=== PATIENT | male | born 1945 | race Asian ===

== ENCOUNTER → 2024-07-07 | Outpatient (CLI) | payer OTHER, SELFPAY ==
[2024-07-07 08:35] LABS: Basophils # (Auto) 0.1 Thou/mm3 (0.0-0.2); Basophils % (Auto) 1 % (0-2.5); Eosinophils # (Auto) 0.3 Thou/mm3 (0.0-0.5); Eosinophils % (Auto) 5 % (0-10); Hematocrit 43.8 % (41.0-53.0); Hemoglobin 14.4 g/dL (13.5-16.0); Immature Granulocytes % (Auto) 0 % (0-0); Immature Granulocytes Auto 0.01 Thou/mm3 (0.00-0.00); Lymphocytes # (Auto) 1.8 Thou/mm3 (1.0-4.8); Lymphocytes % (Auto) 34 % (10-50); Mean Corpuscular HGB Conc 32.9 g/dl (31.0-37.0); Mean Corpuscular Hemoglobin 34.1 pg (25.0-35.0); Mean Corpuscular Volume 104 fL (80-100); Monocytes # (Auto) 0.5 Thou/mm3 (0.0-0.8); Monocytes % (Auto) 9 % (0-12); Neutrophils # (Auto) 2.7 Thou/mm3 (1.8-7.7); Neutrophils % (Auto) 51 % (37-80); Nucleated Red Blood Cell % 0 /100 WBC (0); Platelet Count 183 Thou/mm3 (140-440); RDW Standard Deviation 51.2 fL (35.1-43.9); Red Blood Count 4.22 Miln/mm3 (4.50-5.90); White Blood Count 5.3 Thou/mm3 (3.8-10.6)
[2024-07-07 09:58] LABS: Glucose Estimated Average 120 mg/dL (80-131); Hemoglobin A1C 5.8 % Hgb (4.8-6.0)
[2024-07-07 10:02] LABS: Alanine Aminotransferase 23 U/L (10-49); Albumin, Serum 4.4 gm/dL (3.4-4.8); Albumin/Globulin Ratio 1.6 (1.2-2.2); Alkaline Phosphatase 84 U/L (46-116); Anion Gap 8 (7-16); Aspartate Amino Transferase 25 U/L (0-34); BUN/Creatinine Ratio 14 Ratio (12-20); Bilirubin,Total 0.5 mg/dL (0.3-1.2); Blood Urea Nitrogen 14 mg/dL (9-23); Calcium 10.3 mg/dL (8.3-10.6); Calcium (Corrected) 10.3 mg/dL (8.5-10.1); Carbon Dioxide 29.6 mMol/L (20.0-31.0); Cardiac Risk Estimate 3.2 RATIO (4.0-6.7); Chloride 107 mMol/L (98-107); Cholesterol 149 mg/dL (132-200); Globulin 2.8 gm/dL (2.3-3.5); Glucose 101 mg/dL (74-106); HDL Cholesterol 46 mg/dL (40-60); LDL Cholesterol,Calculated 72 mg/dL (0-130); Osmolality,Calculated 289 (275-295); Potassium 5.2 mMol/L (3.4-5.1); Sodium 145 mMol/L (136-145); Total Protein 7.2 gm/dL (5.7-8.2); Triglycerides 153 mg/dL (30-150); eGFR > 60 See Note
== END | disposition home or self-care (01) ==
PROVIDERS: PCP Family Medicine; Referring Provider Family Medicine; Visit Provider Family Medicine
DX: R63.6 Underweight (principal)
CPT/HCPCS: 36415; 80053; 80061; 83036; 85025

== ENCOUNTER → 2024-10-05 | Outpatient (CLI) | payer OTHER, SELFPAY ==
[2024-10-05 08:36] LABS: Basophils # (Auto) 0.1 Thou/mm3 (0.0-0.2); Basophils % (Auto) 1 % (0-2.5); Eosinophils # (Auto) 0.2 Thou/mm3 (0.0-0.5); Eosinophils % (Auto) 4 % (0-10); Hematocrit 44.3 % (41.0-53.0); Immature Granulocytes % (Auto) 0 % (0-0); Lymphocytes # (Auto) 1.4 Thou/mm3 (1.0-4.8); Lymphocytes % (Auto) 30 % (10-50); Mean Corpuscular HGB Conc 33.9 g/dl (31.0-37.0); Mean Corpuscular Hemoglobin 34.1 pg (25.0-35.0); Mean Corpuscular Volume 101 fL (80-100); Monocytes # (Auto) 0.4 Thou/mm3 (0.0-0.8); Monocytes % (Auto) 8 % (0-12); Neutrophils # (Auto) 2.7 Thou/mm3 (1.8-7.7); Neutrophils % (Auto) 56 % (37-80); Nucleated Red Blood Cell % 0 /100 WBC (0); Platelet Count 189 Thou/mm3 (140-440); RDW Standard Deviation 51.3 fL (35.1-43.9); White Blood Count 4.8 Thou/mm3 (3.8-10.6)
[2024-10-05 08:37] LABS: T4 (Thyroxine) 8.6 mcg/dL (4.5-10.9)
[2024-10-05 08:38] LABS: Alanine Aminotransferase 25 U/L (10-49); Albumin, Serum 4.8 gm/dL (3.4-4.8); Albumin/Globulin Ratio 1.7 (1.2-2.2); Alkaline Phosphatase 90 U/L (46-116); Anion Gap 9 (7-16); BUN/Creatinine Ratio 8 Ratio (12-20); Bilirubin,Total 0.6 mg/dL (0.3-1.2); Blood Urea Nitrogen 8 mg/dL (9-23); Calcium 9.9 mg/dL (8.3-10.6); Calcium (Corrected) 9.9 mg/dL (8.5-10.1); Carbon Dioxide 31.8 mMol/L (20.0-31.0); Cardiac Risk Estimate 2.5 RATIO (4.0-6.7); Chloride 103 mMol/L (98-107); Cholesterol 134 mg/dL (132-200); Globulin 2.9 gm/dL (2.3-3.5); Glucose 112 mg/dL (74-106); HDL Cholesterol 54 mg/dL (40-60); LDL Cholesterol,Calculated 64 mg/dL (0-130); Osmolality,Calculated 286 (275-295); Potassium 5.1 mMol/L (3.4-5.1); Sodium 144 mMol/L (136-145); Thyroid Stimulating Hormone 1.28 uIU/mL (0.55-4.78); Total Protein 7.7 gm/dL (5.7-8.2); Triglycerides 81 mg/dL (30-150); eGFR > 60 See Note
[2024-10-05 08:41] LABS: Folate 23.21 ng/mL (>5.38); Vitamin B12 1162 pg/mL (211-911); Vitamin D 25 Hydroxy Total 27.9 ng/mL (7.3-40.2)
[2024-10-05 08:55] LABS: Urea Breath Test Negative (Negative)
[2024-10-05 08:56] LABS: Glucose Estimated Average 126 mg/dL (80-131)
[2024-10-12 07:06] LABS: Homocysteine* 7.3 umol/L (< OR = 15.2); Methylmalonic Acid, GC/MS/MS* 212 nmol/L (69-390); Vitamin B1 (Thiamine)* 7 nmol/L (8-30)
== END | disposition home or self-care (01) ==
LOC: COPL 06:47
PROVIDERS: PCP Family Medicine; Referring Provider Nurse Practitioner Family; Visit Provider Nurse Practitioner Family
DX: E56.9 Vitamin deficiency, unspecified (principal); K21.9 Gastro-esophageal reflux disease without esophagitis; K29.00 Acute gastritis without bleeding; R53.83 Other fatigue
CPT/HCPCS: 36415; 80053; 80061; 82306; 82607; 82746; 83013; 83014; 83036; 83090; 83921; 84425; 84436; 84443; 85025

== ENCOUNTER → 2024-10-19 | Outpatient (CLI) | payer OTHER, SELFPAY ==
[2024-10-19 14:48] LABS: PSA Medicare Annual Scrn 4.57 ng/mL (0-4.00)
== END | disposition home or self-care (01) ==
LOC: COPL 13:26
PROVIDERS: PCP Nurse Practitioner Family; Referring Provider Nurse Practitioner Family; Visit Provider Nurse Practitioner Family
DX: Z12.5 Encounter for screening for malignant neoplasm of prostate (principal)
CPT/HCPCS: 36415; 84153; G0103

== ENCOUNTER → 2024-10-20 | Outpatient (CLI) | payer OTHER, SELFPAY ==
[2024-10-23 06:45] LABS: Fecal Globin Result NOT DETECTED (NOT DETECTED)
== END | disposition home or self-care (01) ==
LOC: SLDO 10:46
PROVIDERS: PCP Nurse Practitioner Family; Referring Provider Nurse Practitioner Family; Visit Provider Nurse Practitioner Family
DX: Z12.11 Encounter for screening for malignant neoplasm of colon (principal)
CPT/HCPCS: 82274; G0328

== ENCOUNTER 2025-01-11 12:25 | Day surgery (SDC) | payer OTHER, SELFPAY ==
[2025-01-11] VITALS (11 sets, daily range): BP systolic 100–161; BP diastolic 55–82; PULSE 60–73; RESP 12–20; TEMP 36.6–36.7; O2SAT 93–100; BMI 17.2
[2025-01-11] MEDS: BENZOCAINE 20% (Hurricaine) SPRAY 1 DOSE TOP (13:44)
[2025-01-11] MEDS: SODIUM CHLORIDE 0.9% 500 ML 500 ML 20 ML IV (13:45)
[2025-01-11] MEDS: fentaNYL CIT INJ 50 mCg/ML AMP 2ML (ASD USE ONLY) IVP (13:47)
[2025-01-11] MEDS: MIDAZOLAM INJ 1 MG/ML VIAL 2 ML (ASD USE ONLY) 2 MG IVP (13:47)
--- NOTE | 2025-01-11 14:17 | SUR.PHASEII ---
1356 patient s/p EGD under IV sedation, not responsive to painful stimuli, vital signs stable, breathing unlabored, report received from Salud JOHNSON. 1405 patient responsive to loud voice/painful stimuli, vital signs stable, breathing unlabored
--- NOTE | 2025-01-11 15:15 | SUR.PHASEII ---
1506 patient is awake, alert, breathing unlabored, able to drink water with no nausea, vomiting or difficulty swallowing, meets discharge criteria, discharge instructions given to patient and , patient discharged home in wheelchair with all belongings.
== END 2025-01-11 15:06 | disposition home or self-care (01) ==
PROVIDERS: PCP Nurse Practitioner Family; Referring Provider Specialist; Visit Provider Specialist
PROC: (CPT 43239; principal; 2025-01-11 12:45)
DX: K29.50 Unspecified chronic gastritis without bleeding (principal); K20.90 Esophagitis, unspecified without bleeding
CPT/HCPCS: 43239; A4649; J1200; J2250; J3010; J7999; A9270

== ENCOUNTER → 2025-01-27 | Outpatient (CLI) | payer OTHER, SELFPAY ==
--- NOTE | 2025-01-27 07:48 | XR_ITS ---
Examination: Abdomen sonogram, Limited Date and time of exam: 2024, 0753 hours INDICATIONS: Epigastric pain and acid reflux 10 years, cholecystectomy 2 years ago Technique: Real-time paz scale transabdominal sonographic images of the upper abdomen obtained. Findings: Absent gallbladder Normal common bile duct 0.4 cm Pancreatic head 2.2 cm Liver 14.4 cm no liver lesions Normal hepatopedal portal venous flow Patent IVC IMPRESSION: Normal common bile duct Liver normal size no focal liver lesions
== END | disposition home or self-care (01) ==
LOC: CDIM 06:42
PROVIDERS: PCP Family Medicine; Referring Provider Specialist; Visit Provider Specialist
DX: R10.13 Epigastric pain (principal); K21.9 Gastro-esophageal reflux disease without esophagitis
CPT/HCPCS: 76705

== ENCOUNTER → 2025-02-11 | Outpatient (CLI) | payer OTHER, SELFPAY ==
[2025-02-11 14:38] LABS: Basophils # (Auto) 0.0 Thou/mm3 (0.0-0.2); Basophils % (Auto) 1 % (0-2.5); Eosinophils # (Auto) 0.2 Thou/mm3 (0.0-0.5); Eosinophils % (Auto) 3 % (0-10); Hematocrit 41.6 % (41.0-53.0); Hemoglobin 14.0 g/dL (13.5-16.0); Immature Granulocytes Auto 0.01 Thou/mm3 (0.00-0.00); Lymphocytes # (Auto) 1.6 Thou/mm3 (1.0-4.8); Lymphocytes % (Auto) 25 % (10-50); Mean Corpuscular HGB Conc 33.7 g/dl (31.0-37.0); Mean Corpuscular Hemoglobin 34.1 pg (25.0-35.0); Mean Corpuscular Volume 101 fL (80-100); Monocytes # (Auto) 0.8 Thou/mm3 (0.0-0.8); Monocytes % (Auto) 12 % (0-12); Neutrophils # (Auto) 3.8 Thou/mm3 (1.8-7.7); Neutrophils % (Auto) 60 % (37-80); Nucleated Red Blood Cell # 0.00 Thou/mm3 (0.00-0.00); Nucleated Red Blood Cell % 0 /100 WBC (0); Platelet Count 221 Thou/mm3 (140-440); RDW Standard Deviation 48.6 fL (35.1-43.9); Red Blood Count 4.11 Miln/mm3 (4.50-5.90); White Blood Count 6.3 Thou/mm3 (3.8-10.6)
[2025-02-11 14:47] LABS: Glucose Estimated Average 126 mg/dL (80-131); Hemoglobin A1C 6.0 % Hgb (4.8-6.0)
[2025-02-18 06:31] LABS: Vitamin B1 (Thiamine)* 48 nmol/L (8-30)
== END | disposition home or self-care (01) ==
LOC: COPL 13:15
PROVIDERS: PCP Nurse Practitioner Family; Referring Provider Nurse Practitioner Family; Visit Provider Nurse Practitioner Family
DX: E51.9 Thiamine deficiency, unspecified (principal); K27.9 Peptic ulcer, site unspecified, unspecified as acute or chronic, without hemorrhage or perforation; K21.01 Gastro-esophageal reflux disease with esophagitis, with bleeding; R63.0 Anorexia; R73.03 Prediabetes
CPT/HCPCS: 36415; 82607; 83036; 84425; 85025

== ENCOUNTER 2025-03-23 06:09 | Emergency (ER) | payer OTHER, SELFPAY ==
[2025-03-23 06:09] VITALS: BMI 17.6
[2025-03-23 06:16] VITALS: BP 115/58; PULSE 99; RESP 19; TEMP 36.6; O2SAT 97
--- NOTE | 2025-03-23 06:19 | XR_ITS ---
Examination: Shoulder, left, 3 views Technique: Shoulder AP internal rotation, AP external rotation, Y view shoulder, 3 views Exam date and time : March 23 0621 hours INDICATIONS: Shoulder pain from lifting injuries beginning 5 days ago FINDINGS: 3 mm AC joint separation age-indeterminate Moderate narrowing glenohumeral joint No shoulder fracture or dislocation Prominent left shoulder soft tissue calcific tendinitis IMPRESSION: No acute fracture 3 mm AC joint separation, age indeterminate, clinical correlation advised Moderate narrowing glenohumeral joint Prominent left shoulder soft tissue calcific tendinitis
--- NOTE | 2025-03-23 06:19 | PD.EDUPEX ---
Upper Extremity Injury RME/HPI General Chief Complaint: Extremity Injury, Upper Stated Complaint: LEFT SHOULDER PAIN Time Seen by Provider: 03/23/25 06:16 Source: patient Arrival date/time: 03/23/25 06:09 79-year-old male with no known medical history presents to the emergency room with a chief complaint of left shoulder pain x 5 days. Patient denies any trauma and states it could be due to lifting 5 gallon water jugs. Mode of arrival: ambulatory Limitations: no limitations Related Data Home Medications ?Medication ?Instructions ?Recorded ?Confirmed dorzolamide 2 % eye drops 1 drp ophthalmic (eye) BID 05/22/22 01/11/25 latanoprost 0.005 % eye drops 1 drp ophthalmic (eye) QDAY 05/22/22 01/11/25 cimetidine 400 mg tablet 400 mg PO BID 01/11/25 01/11/25 Previous Rx's ?Medication ?Instructions ?Recorded pantoprazole 40 mg tablet,delayed 40 mg PO BID 90 days #60 tabs 03/26/22 release (Protonix) ibuprofen 400 mg tablet 400 mg PO Q8H PRN pain #20 tabs 03/23/25 Allergies Allergy/AdvReac Type Severity Reaction Status Date / Time crab Allergy Mild Rash Verified 01/11/25 14:05 shrimp Allergy Mild Rash Verified 01/11/25 14:05 Penicillins AdvReac Intermediate Rash Verified 01/11/25 14:05 Review of Systems Review of Systems Systems Reviewed: All systems reviewed, normal except as documented Constitutional Constitutional: Reports system reviewed and no additional complaints, except as documented, Denies fatigue, Denies fever(s), Denies headache(s) and Denies weakness Eyes Eyes: Reports system reviewed and no additional complaints, except as documented, Denies blurry vision and Denies change in vision ENT Ears, Nose, Mouth, and Throat: Reports system reviewed and no additional complaints, except as documented, Denies otalgia, Denies headache(s), Denies nasal congestion, Denies throat swelling and Denies vertigo Cardiovascular Cardiovascular: Reports system reviewed and no additional complaints, except as documented, Denies chest pain, Denies dyspnea and Denies dyspnea on exertion Respiratory Respiratory: Reports system reviewed and no additional complaints, except as documented, Denies chest congestion, Denies cough, Denies dyspnea, Denies dyspnea on exertion and Denies wheezing Gastrointestinal Gastrointestinal: Reports system reviewed and no additional complaints, except as documented, Denies abdominal pain, Denies cramping, Denies nausea and Denies vomiting Genitourinary Genitourinary: Reports system reviewed and no additional complaints, except as documented, Denies dysuria and Denies hematuria Musculoskeletal Musculoskeletal: Reports system reviewed and no additional complaints, except as documented, Reports arthralgias, Denies back pain, Reports joint swelling and Reports limited range of motion Integumentary/Breasts Skin/Breast: Reports system reviewed and no additional complaints, except as documented and Denies wounds Neurologic Neurologic: Reports system reviewed and no additional complaints, except as documented, Denies confusion, Denies headache(s), Denies lack of coordination, Denies vertigo and Denies weakness Psychiatric Psychiatric: Reports system reviewed and no additional complaints, except as documented, Denies anxiety, Denies confusion, Denies depression, Denies paranoia, Denies suicidal ideation and Denies tactile hallucinations Endocrine Endocrine: Reports system reviewed and no additional complaints, except as documented and Denies fatigue Hematologic/Lymphatic Hematologic/Lymphatic: Reports system reviewed and no additional complaints, except as documented and Denies lymphadenopathy Allergic/Immunologic Allergic/Immunologic: Reports system reviewed and no additional complaints, except as documented, Denies throat swelling, Denies urticaria and Denies wheezing Past Medical History Past Medical History NEUROLOGIC: Positive Neurological Disorders, Head Trauma (2018 FALL, BUMPED HEAD, BRAIN BLEED) and Traumatic Brain Injury (pt fell and suffer brain clot); Negative Seizures CARDIAC: Positive Cardiac Disorders (brain bleed 7 years ago); Negative Hypercholesterolemia, Congestive Heart Failure, Edema, Cellulitis or Hypertension RESPIRATORY: Positive Asthma (CHILDHOOD ASTHMA); Negative Chronic Obstructive Pulmonary Disease (COPD) GASTROINTESTINAL: Positive Gastrointestinal Disorders (HEART BURN), Gall Bladder Disease, Ulcer and Gastroesophageal Reflux Disease; Negative Hepatitis GENITOURINARY: Negative Genitourinary Disorders or Renal Disease MUSCULOSKELETAL: Positive Musculoskeletal Disorders and Arthritis ENT: Positive Cataracts, Glaucoma and Head Trauma (2018 FALL, BUMPED HEAD, BRAIN BLEED) ENDOCRINE: Negative Endocrine Disorders, Diabetes Mellitus Type 1 or Diabetes Mellitus Type 2 HEMATOLOGIC: Negative Blood Disorders OTHER HISTORY: Positive Hospitalization, Falls, Chicken Pox, Measles and Mumps; Negative Autoimmune Disease, Shingles, Blood Transfusions (pt unsure), Anesthesia Reactions, MRSA or Cancer Family History FAMILY HISTORY: Positive Family Cardiac Disorders (SISTER (HTN)) and Family Cancer (BROTHER (LUNG)); Negative Family Psychiatric Problems, Family Respiratory Disorders, Family Gastrointestinal Problems, Family Surgery or Family Anesthesia Reaction Surgical History SURGICAL: Positive Neurologic Surgery (BRAIN/HEAD SX - BRAIN BLEED 2018); Negative Cardiac Surgery or Pacemaker Social History SMOKING STATUS: Never smoker ED Exam General Limitations: Present no limitations General appearance: Present alert and in no apparent distress Head Head exam: Present atraumatic Eye Eye exam: Present normal appearance, PERRL and EOMI ENT ENT exam: Present normal exam, normal oropharynx and mucous membranes moist Neck Neck exam: Present normal inspection, full ROM and trachea midline Chest Chest inspection: Present normal inspection and symmetric chest wall rise Respiratory Respiratory exam: Present normal lung sounds bilaterally Cardiovascular Cardiovascular exam: Present regular rate, normal rhythm and normal heart sounds Abdominal Exam Abdominal exam: Present soft and normal bowel sounds Extremities Exam Extremities exam: Present normal inspection and full ROM Expanded Upper Extremity Exam Shoulder exam: Present tenderness and tenderness over AC joint; Absent full ROM, swelling or crepitus Arm exam: Present normal inspection Elbow exam: Present normal inspection Forearm/Wrist exam: Present normal inspection Hand exam: Present normal inspection Vascular exam: Normal capillary refill Back Exam Back exam: Present normal inspection and full ROM Neurological Exam Neurological exam: Present alert, oriented X3 and CN II-XII intact Psychiatric Psychiatric exam: Present normal affect and normal mood Skin Skin exam: Present warm, dry, intact and normal color Course Quality Measures none Orders Category Date Time Status sling [Splint / Immobilizer] STAT Care 03/23/25 06:59 Completed XR shoulder LT min 2V Stat Exams 03/23/25 06:19 Completed Ketorolac Inj [Toradol Inj] Med 03/23/25 06:19 Discontinued 30 mg IM X1 ONE Vital Signs Vital signs: Vital Signs Temperature 97.8 F 03/23/25 06:16 Pulse Rate 99 03/23/25 06:16 Respiratory Rate 19 03/23/25 06:16 Blood Pressure 115/58 L 03/23/25 06:16 Pulse Oximetry (%) 97 03/23/25 06:16 Oxygen Delivery Method Room Air 03/23/25 06:16 Extremity Injury MDM Narrative MDM Narrative:: 79-year-old male with no known medical history presents to the emergency room with a chief complaint of left shoulder pain x 5 days. Patient denies any trauma and states it could be due to lifting 5 gallon water jugs. Patient is hemodynamically stable and in no apparent distress Physical examination shows tenderness and pain to the patient's left shoulder x 5 days. Patient has limited range of motion. Patient denies any trauma. Patient states he believes this injury occurred while he was lifting 5 gallon water jugs as they are really heavy. X-ray of the shoulder was negative for any acute fracture or dislocation and shows a 3 mm AC joint separation and moderate narrowing in the glenohumeral joint. Patient was educated to follow-up with primary care provider as an MRI may be indicated to assess for any rotator cuff injury Patient was discharged and educated to follow-up with primary care provider in the next 24 to 48 hours and return to the emergency room for any evidence of worsening signs or symptoms Patient data External records reviewed:: [facility] previous records Clinical information provided by:: patient Social determinants that could affect healthcare access:: none Patient has the following chronic illnesses:: No chronic illness How is presenting disease/condition affected by chronic disease/condition?: no chronic disease Evaluation data The following diagnostics were reviewed and interpreted by me:: lab results and radiology exam(s) Lab and/or radiology exams considered but not ordered:: Labs and radiology exams considered and ordered Interpretation Summary: X-ray left shoulder-FINDINGS: 3 mm AC joint separation age-indeterminate Moderate narrowing glenohumeral joint No shoulder fracture or dislocation Prominent left shoulder soft tissue calcific tendinitis IMPRESSION: No acute fracture 3 mm AC joint separation, age indeterminate, clinical correlation advised Moderate narrowing glenohumeral joint Prominent left shoulder soft tissue calcific tendinitis Medications / Prescriptions Medications or Prescriptions considered but not ordered:: Medication given Medication administrations:: Medication Administration History Discontinued Medications Ketorolac Tromethamine (Ketorolac Inj 60 Mg/2 Ml Vial) 30 mg IM X1 ONE Stop: 03/23/25 06:20 Last Admin: 03/23/25 06:31 Dose: 30 mg Documented By: CB Medication given Consultations Consultation(s) initiated? (list below): No Diagnosis Upper Extremity Injury Differential Diagnosis: dislocation of shoulder, fracture of clavicle and other (Shoulder fracture/shoulder sprain) Most likely diagnosis given after review of the tests above:: Shoulder sprain Admission Indicated Admission indicated?: not indicated Admission Request Was there a request for admission?: No Disposition Plan Disposition Plan: Discharge Discharge Attestation Discharge Attestation: The patient and all family members were given an opportunity to ask questions and understood the discharge instructions. Discharge instructions specifically effects, indications for sooner follow up or return to the emergency department, and the expected course of current diagnosis. Patient condition: Stable Discharge Plan Plan Patient Disposition: HOME (Self Care) Discharge Disposition comment: Stable Prescriptions/Referrals Prescriptions/Med Rec: New ibuprofen 400 mg tablet 400 mg PO Q8H PRN (Reason: pain) Qty: 20 0RF No Action pantoprazole [Protonix] 40 mg Tablet,Delayed Release (Dr/Ec) 40 mg PO BID 90 Days Qty: 60 2RF latanoprost 0.005 % drops 1 drp OPHTHALMIC (EYE) QDAY Patient Comments: INSTILL 1 DROP INTO BOTH EYES NIGHTLY dorzolamide 2 % Drops 1 drp OPHTHALMIC (EYE) BID cimetidine 400 mg tablet 400 mg PO BID Referrals: Temporary Provider,ED [Physician, Emergency Medicine] - In 1 week Problem List Clinical Impression: Calcific tendonitis of left shoulder Patient/Caregiver Discharge Instructions Education Materials: Rotator Cuff Injury, ED Tendonitis, ED Shoulder Pain, Uncertain Cause Additional Instructions: Please follow-up with your primary care provider in the next 24 to 48 hours Your x-rays of your left shoulder show some AC joint separation. This could mean there is some ligament damage in your shoulder. If your signs and symptoms continue you will need an MRI to assess for any rotator cuff injury. For any evidence of worsening signs or symptoms return to the emergency room immediately Print Language: Bhutanese Stand Alone Forms: Fidelia Award Info., Work/School Release, Patient Portal Info Letter OSVALDO/ANDRES Supervising Physician OSVALDO/ANDRES Supervising Physician: Dr. Barron
[2025-03-23] MEDS: KETOROLAC INJ 60 MG/2 ML VIAL 30 MG IM (06:31)
== END 2025-03-23 07:13 | disposition home or self-care (01) ==
PROVIDERS: Emergency Provider Emergency Medicine; PCP Family Medicine
DX: S43.109A Unspecified dislocation of unspecified acromioclavicular joint, initial encounter (principal); M75.32 Calcific tendinitis of left shoulder; X58.XXXA Exposure to other specified factors, initial encounter
CPT/HCPCS: 73030; 96372; 99283; A4565; J1885